=== PATIENT | male | born 1955 | race Asian ===

== ENCOUNTER 2018-08-28 17:46 | Emergency (ER) | payer OTHER ==
[~2018-08-28] VITALS: Ht 172.7 cm; Wt 81.8 kg
[2018-08-28] MEDS ORDERED: [UNRECOGNIZED DRUG - CODE] PO (18:12)
[2018-08-28] MEDS ORDERED: ACETAMINOPHEN 500 MG TABLET PO ONE (19:30)
[2018-08-28] MEDS ORDERED: TraMADol HCL 50 MG TABLET PO ONE (20:00)
[2018-08-28] MEDS ORDERED: CloNIDine HCL 0.1 MG TABLET PO ONE (21:15)
[2018-08-28] MEDS ORDERED: LORazepam 1 MG TABLET PO ONE (21:15)
[2018-08-28 22:53] VITALS: BP 157/102
== END 2018-08-28 23:01 | disposition home or self-care (01) ==
LOC: EMS 17:47
DX: S40.022A Contusion of left upper arm, initial encounter (principal); R03.0 Elevated blood-pressure reading, without diagnosis of hypertension; Z79.899 Other long term (current) drug therapy; Y08.89XA Assault by other specified means, initial encounter; Y93.89 Activity, other specified; Y92.89 Other specified places as the place of occurrence of the external cause; Y99.8 Other external cause status
CPT/HCPCS: 93005; 99284